=== PATIENT | female | born 1990 | race American Indian/Alaskan Native ===

== ENCOUNTER 2016-03-24 14:13 | Emergency (ER) | payer MEDICAID ==
[2016-03-24 14:35] VITALS: BP 145/83
--- NOTE | 2016-03-24 15:19 | Emergency Department Report ---
Chief Complaint: Abdominal Pain Stated Complaint: ABD PAIN/SPOTTING PINK IN COLOR Time Seen by Provider: 03/24/16 15:13 - HPI History of Present Illness: 25-year-old female comes in for left lower quadrant pain 1 week in an vaginal discharge she also reports of small amount of blood but heavier today that she is noticed but this is not her period. Patient reports her appetite has been abnormal she denies any dysuria no nausea no vomiting. - Exam Vital Signs: Vital Signs 03/24/16 14:31 Temperature 99.1 F Pulse Rate 90 Respiratory 16 Rate Blood Pressure 145/83 O2 Sat by Pulse 100 Oximetry Physical Exam: Alert and oriented 3 cardiovascular S1-S2 regular rate and rhythm respiratory clear to auscultation bilateral abdomen soft nontender nondistended. MSE screening note: Focused history and physical exam performed. Due to findings the following was ordered: Patient's been evaluated by this provider. CBC BMP UA and urine should be evaluated in the main ER ED Disposition for MSE Condition: Stable Instructions: Abdominal Pain (ED)
[2016-03-24 16:16] LABS: Hematocrit 39.8 % (30.3-42.9); Mean Corpuscular HGB Conc 33 % (30-34); Mean Corpuscular Hemoglobin 30 pg (28-32); Mean Corpuscular Volume 92 fl (79-97); Platelet Count 130 K/mm3 (140-440); Red Blood Count 4.34 M/mm3 (3.65-5.03); Red Cell Distribution Width 13.8 % (13.2-15.2); White Blood Count 5.8 K/mm3 (4.5-11.0)
[2016-03-24 16:18] LABS: Bilirubin,Urine NEG (Negative); Blood,Urine SM (Negative); Ketones,Urine TR mg/dL (Negative); Leukocyte Esterase,Urine LG (Negative); Mucus,Urine FEW /HPF; Nitrite,Urine NEG (Negative); Urobilinogen,Urine < 2.0 mg/dL (<2.0)
[2016-03-24 16:29] LABS: BUN/Creatinine Ratio 11.42; Blood Urea Nitrogen 8 mg/dL (7-17); Carbon Dioxide 24 mmol/L (22-30); Chloride 103.5 mmol/L (98-107); Glucose 89 mg/dL (65-100); Potassium 4.6 mmol/L (3.6-5.0); Sodium 140 mmol/L (137-145)
[2016-03-24 16:37] LABS: Anion Gap 17 mmol/L
[2016-03-24] MEDS ORDERED: ROCEPHIN ONE (20:13)
--- NOTE | 2016-03-28 05:50 | ED Elopement Review ---
ED Pt Elopement review - Results review Lab results: Laboratory Tests 03/24/16 03/24/16 03/24/16 15:40 15:59 15:59 WBC 5.8 RBC 4.34 Hgb 13.0 Hct 39.8 MCV 92 MCH 30 MCHC 33 RDW 13.8 Plt Count 130 L Sodium 140 Potassium 4.6 Chloride 103.5 Carbon Dioxide 24 Anion Gap 17 BUN 8 Creatinine 0.7 Estimated GFR > 60 BUN/Creatinine Ratio 11.42 Glucose 89 Calcium 9.0 Urine Color Yellow Urine Turbidity Clear Urine pH 6.0 Ur Specific [place] 1.021 Urine Protein 100 mg/dl Urine Glucose (UA) Neg Urine Ketones Tr Urine Blood Sm Urine Nitrite Neg Urine Bilirubin Neg Urine Urobilinogen < 2.0 Ur Leukocyte Esterase Lg Urine WBC (Auto) 162.0 H Urine RBC (Auto) 12.0 U Epithel Cells (Auto) 8.0 Urine Mucus Few Urine HCG, Qual Negative - Call Back decision Pt Call Back Decision: No action required
== END 2016-03-24 23:37 | disposition left against medical advice (07) ==
LOC: ED 14:13
DX: N89.8 Other specified noninflammatory disorders of vagina (principal); R10.32 Left lower quadrant pain; Z53.21 Procedure and treatment not carried out due to patient leaving prior to being seen by health care provider
CPT/HCPCS: 36415; 80048; 81001; 81025; 85027; J0696

== ENCOUNTER 2016-06-27 17:51 | Emergency (ER) | payer MEDICAID ==
[2016-06-27 22:05] LABS: Eosinophils % (Auto) 2.1 % (0.0-4.3); Hematocrit 37.8 % (30.3-42.9); Hemoglobin 12.4 gm/dl (10.1-14.3); Mean Corpuscular HGB Conc 33 % (30-34); Mean Corpuscular Hemoglobin 30 pg (28-32); Mean Corpuscular Volume 93 fl (79-97); Platelet Count 163 K/mm3 (140-440); Red Blood Count 4.08 M/mm3 (3.65-5.03); Red Cell Distribution Width 13.8 % (13.2-15.2); White Blood Count 7.4 K/mm3 (4.5-11.0)
[2016-06-27 22:11] LABS: Anion Gap 15 mmol/L; BUN/Creatinine Ratio 14.28; Blood Urea Nitrogen 10 mg/dL (7-17); Calcium 8.9 mg/dL (8.4-10.2); Carbon Dioxide 27 mmol/L (22-30); Chloride 100.1 mmol/L (98-107); Glucose 83 mg/dL (65-100); Potassium 3.8 mmol/L (3.6-5.0); Sodium 138 mmol/L (137-145)
--- NOTE | 2016-06-27 23:03 | Emergency Department Report ---
HPI - HPI HPI: 26-year-old female presents today complaining of lower abdominal pain 2 weeks but worsened yesterday. Positive for vaginal discharge. Denies fever, chills, nausea, vomiting, chest pain, shortness of breath, increased urinary frequency or urgency, burning on urination, blood in urine. Her last menstrual period ended yesterday. Patient states that she is worried about . Also complaining of right hand pain post punching a wall one week ago. Describes her pain as a 7 out of 10 with movement and is 0 out of 10 at rest. Denies taking any medication for pain relief. Denies history of injury or surgery to right hand. <AMY AMES - Last Filed: 06/27/16 22:57> <ALFIE ROMERO - Last Filed: 06/28/16 03:02> - General Chief Complaint: Extremity Injury, Upper Time Seen by Provider: 06/27/16 20:37 ED Past Medical Hx - Past Medical History Previous Medical History?: Yes Hx Arthritis: Yes - Surgical History Past Surgical History?: No - Social History Smoking Status: Current Every Day Smoker Substance Use Type: Alcohol <AMY AMES - Last Filed: 06/27/16 22:57> <ALFIE ROMERO - Last Filed: 06/28/16 03:02> - Medications Home Medications: Home Medications Medication Instructions Recorded Confirmed Last Taken Type Dicyclomine [Bentyl] 20 mg PO QID PRN #20 tablet 01/07/13 Unknown Rx Famotidine [Pepcid] 40 mg PO QHS #30 tablet 01/07/13 Unknown Rx Cyclobenzaprine [Flexeril] 10 mg PO TID PRN #14 tablet 01/23/13 Unknown Rx Hydrocodone Bit/Acetaminophen 1 each PO Q4-6H PRN #14 tablet 01/23/13 Unknown Rx [Lortab 5-500 Tablet] Albuterol Sulfate [Ventolin HFA] 2 puff IH Q4H PRN #1 hfa.aer.ad 05/20/13 Unknown Rx Promethazine /Codeine 5 ml PO Q6H PRN #50 ml 05/20/13 Unknown Rx [Phenergan/Codeine 6.25-10 mg/5 ml] predniSONE [Deltasone] 20 mg PO QDAY #4 tab 05/20/13 Unknown Rx Acetaminophen/Codeine 1 tab PO Q6H PRN #20 tab 05/21/14 Unknown Rx [Acetaminophen-Codeine #3 TAB] Ibuprofen [Motrin] 600 mg PO Q8H PRN #50 tablet 05/21/14 Unknown Rx metroNIDAZOLE [Flagyl TAB] 500 mg PO Q12HR #14 tab 06/28/16 Unknown Rx ED Review of Systems ROS: Stated complaint: POSS BROKEN KNUCKLE RT HAND/ABD PAIN Other details as noted in HPI Constitutional: denies: chills, fever, malaise Eyes: denies: eye pain ENT: denies: ear pain, throat pain, congestion Respiratory: denies: cough, shortness of breath, wheezing Cardiovascular: denies: chest pain, palpitations Endocrine: no symptoms reported Gastrointestinal: abdominal pain. denies: nausea, vomiting, diarrhea, constipation Genitourinary: discharge. denies: urgency, dysuria, frequency, hematuria Musculoskeletal: denies: back pain Neurological: denies: headache, weakness, numbness, paresthesias <AMY AMES - Last Filed: 06/27/16 22:57> ROS: Stated complaint: POSS BROKEN KNUCKLE RT HAND/ABD PAIN Other details as noted in HPI <ALFIE ROMERO - Last Filed: 06/28/16 03:02> Physical Exam - Physical Exam Vital Signs: Vital Signs 06/27/16 18:53 Temperature 98.6 F Pulse Rate 66 Respiratory 18 Rate Blood Pressure 111/69 O2 Sat by Pulse 98 Oximetry Physical Exam: GENERAL: The patient is well-developed and well-nourished. Patient is in NAD. HEAD: Normocephalic. Atraumatic. CHEST/LUNGS: Clear to auscultation throughout. HEART/CARDIOVASCULAR: Regular rate and rhythm. No murmurs, rubs or gallops. ABDOMEN: Abdomen is soft, nontender. Bowel sounds normoactive. No guarding or rebound tenderness. Negative for CVA tenderness bilaterally. PELVIC: Normal external genitalia. Normal cervix. Positive for white discharge in the vaginal canal. No blood noted. RIGHT WRIST HAND: Full range of motion, pain with flexion of the fourth digit. No tenderness to palpation of wrist/ hand. Normal sensation. 2 point discrimination intact. Peripheral pulses intact. Capillary refill less than 2 seconds. NEURO: Alert and oriented x 3. Normal gait. Symmetrical strength and sensation. GCS score of 15. <AMY AMES - Last Filed: 06/27/16 22:57> - Physical Exam Vital Signs: Vital Signs 06/27/16 06/28/16 18:53 00:16 Temperature 98.6 F 98 F Pulse Rate 66 50 L Respiratory 18 16 Rate Blood Pressure 111/69 Blood Pressure 84/46 [Right] O2 Sat by Pulse 98 100 Oximetry <ALFIE ROMERO - Last Filed: 06/28/16 03:02> ED Course Vital Signs 06/27/16 18:53 Temperature 98.6 F Pulse Rate 66 Respiratory 18 Rate Blood Pressure 111/69 O2 Sat by Pulse 98 Oximetry <AMY AMES - Last Filed: 06/27/16 22:57> Vital Signs 06/27/16 06/28/16 18:53 00:16 Temperature 98.6 F 98 F Pulse Rate 66 50 L Respiratory 18 16 Rate Blood Pressure 111/69 Blood Pressure 84/46 [Right] O2 Sat by Pulse 98 100 Oximetry <ALFIE ROMERO - Last Filed: 06/28/16 03:02> ED Medical Decision Making - Lab Data Result diagrams: 06/27/16 21:19 06/27/16 21:19 <AMY AMES - Last Filed: 06/27/16 22:57> - Lab Data Result diagrams: 06/27/16 21:19 06/27/16 21:19 - Radiology Data Radiology results: report reviewed Xr right hand no acute osseous abnormality - Medical Decision Making Patient is stable, neurologically intact and in no acute distress. Patient has no abdominal tenderness on palpation and states her pain has resolved on re- examination. patient will be treated with RX for Flagyl for vaginal discharge symptoms and discharged. Patient understands to return to ED for further evaluation if pain returns. Patient also understands to call back to medical records for GC culture results within 48 hours. <ALFIE ROMERO - Last Filed: 06/28/16 03:02> Critical care attestation.: If time is entered above; I have spent that time in minutes in the direct care of this critically ill patient, excluding procedure time. <AMY AMES - Last Filed: 06/27/16 22:57> Critical care attestation.: If time is entered above; I have spent that time in minutes in the direct care of this critically ill patient, excluding procedure time. <ALFIE ROMERO - Last Filed: 06/28/16 03:02> ED Disposition <AMY AMES - Last Filed: 06/27/16 22:57> Is pt being admited?: No Does the pt Need Aspirin: No <ALFIE ROMERO - Last Filed: 06/28/16 03:02> Clinical Impression: Pelvic and perineal pain Disposition: DISCHARGED TO HOME OR SELFCARE Condition: Stable Instructions: Bacterial Vaginosis (ED) Prescriptions: metroNIDAZOLE [Flagyl TAB] 500 mg PO Q12HR #14 tab Referrals: PRIMARY CARE, [Primary Care Provider] - 3-5 Days Forms: Work/School Release Form(ED)
[2016-06-27 23:08] LABS: Bilirubin,Urine NEG (Negative); Blood,Urine NEG (Negative); Ketones,Urine NEG (Negative); Leukocyte Esterase,Urine NEG (Negative); Nitrite,Urine NEG (Negative); Protein,Urine <15 mg/dL mg/dL (Negative); Urobilinogen,Urine < 2.0 mg/dL (<2.0)
--- NOTE | 2016-06-27 23:43 | XRay Report ---
FINAL REPORT EXAM: XR HAND 3 RT HISTORY: Punched a wall TECHNIQUE: 4 views of right hand. PRIORS: None. FINDINGS: Joint spaces maintained. No apparent fracture or dislocation. Soft tissues grossly unremarkable. IMPRESSION: 1. No acute osseous abnormality.
[2016-06-28 00:16] VITALS: BP 84/46
[2016-06-28] MEDS ORDERED: TORADOL IM ONE (01:38)
[2016-06-28] MEDS ORDERED: NORCO 5/325 PO ONE (01:38)
== END 2016-06-28 03:09 | disposition home or self-care (01) ==
LOC: ED 17:51
DX: N89.8 Other specified noninflammatory disorders of vagina (principal); R10.30 Lower abdominal pain, unspecified; M19.90 Unspecified osteoarthritis, unspecified site; F17.200 Nicotine dependence, unspecified, uncomplicated
CPT/HCPCS: 36415; 73130; 80048; 81001; 82150; 83690; 84702; 85025; 87210; 87591; 96372; 99284; J1885

== ENCOUNTER 2018-12-19 20:58 | Emergency (ER) | payer SELFPAY ==
[2018-12-19 21:31] VITALS: BP 122/69
[2018-12-19 22:47] LABS: Bacteria,Urine 4+ /HPF (Negative); Bilirubin,Urine NEG (Negative); Blood,Urine NEG (Negative); Color,Urine Yellow (Yellow); Mucus,Urine 3+ /HPF; Urobilinogen,Urine < 2.0 mg/dL (<2.0)
== END 2018-12-19 23:25 | disposition left against medical advice (07) ==
LOC: ED 20:58
DX: R10.2 Pelvic and perineal pain (principal); Z53.21 Procedure and treatment not carried out due to patient leaving prior to being seen by health care provider
CPT/HCPCS: 81001; 87086

== ENCOUNTER 2019-01-01 20:07 | Emergency (ER) | payer SELFPAY ==
[2019-01-01 20:46] VITALS: BP 107/49
--- NOTE | 2019-01-01 20:48 | Event Note ---
ED Screening Note Date of service: 01/01/19 Time: 20:44 ED Screening Note: This is a 28 y.o. F. that presents to the ER with left shoulder pain x 2-3 weeks. Patient states she delivered 5 months ago and started taking ibuprofen with no improvement of symptoms. Denies recent injury, numbness or tingling, bruising, swelling This initial assessment/diagnostic orders/clinical plan/treatment(s) is/are subject to change based on patients health status, clinical progression and re-assessment by fellow clinical providers in the ED. Further treatment and workup at subsequent clinical providers discretion. Patient/guardian urged not to elope from the ED as their condition may be serious if not clinically assessed and managed. Initial orders include: XR of left shoulder
--- NOTE | 2019-01-01 22:26 | XRay Report ---
LEFT SHOULDER 3 VIEW(S) INDICATION / CLINICAL INFORMATION: MAIN: shoulder pain for over a week and is getting worse. COMPARISON: None available. FINDINGS: BONES / JOINT(S): No acute fracture or subluxation. No significant arthritis. SOFT TISSUES: No significant abnormality. ADDITIONAL FINDINGS: None. Signer Name: Luis Katz MD Signed: 01/01/2019 10:21 PM Workstation Name: [id number]
--- NOTE | 2019-01-01 22:37 | Emergency Department Report ---
ED Upper Extremity Inj HPI - General Chief Complaint: Shoulder Injury Stated Complaint: LEFT SHOULDER PAIN Time Seen by Provider: 01/01/19 20:44 Source: patient Mode of arrival: Ambulatory Limitations: No Limitations - History of Present Illness Initial Comments: Jodi is a 24 yo female who presents with left posterior shoulder pain for the past several weeks. no injury. Does carry her 5 month old infant. Ibuprofen no relief. Complaint: Injury to:: left, shoulder -: Gradual, week(s) (2-3) Other Extremity Injury: Shoulder: Left Other Injuries: none Place: home Severity scale (0 -10): 7 Improves With: rest Worsens With: movement of extremity Context: other (no known injury ) Associated Symptoms: denies other symptoms - Related Data Previous Rx's Medication Instructions Recorded Last Taken Type Dicyclomine [Bentyl] 20 mg PO QID PRN #20 tablet 01/07/13 Unknown Rx Famotidine [Pepcid] 40 mg PO QHS #30 tablet 01/07/13 Unknown Rx Cyclobenzaprine [Flexeril] 10 mg PO TID PRN #14 tablet 01/23/13 Unknown Rx Hydrocodone Bit/Acetaminophen 1 each PO Q4-6H PRN #14 tablet 01/23/13 Unknown Rx [Lortab 5-500 Tablet] Albuterol Sulfate [Ventolin HFA] 2 puff IH Q4H PRN #1 hfa.aer.ad 05/20/13 Unknown Rx Promethazine /Codeine 5 ml PO Q6H PRN #50 ml 05/20/13 Unknown Rx [Phenergan/Codeine 6.25-10 mg/5 ml] predniSONE [Deltasone] 20 mg PO QDAY #4 tab 05/20/13 Unknown Rx Acetaminophen/Codeine 1 tab PO Q6H PRN #20 tab 05/21/14 Unknown Rx [Acetaminophen-Codeine #3 TAB] Ibuprofen [Motrin] 600 mg PO Q8H PRN #50 tablet 05/21/14 Unknown Rx metroNIDAZOLE [Flagyl TAB] 500 mg PO Q12HR #14 tab 06/28/16 Unknown Rx ALBUTEROL Inhaler (OR & NICU) 2 puff IH QID PRN #1 inhalation 10/22/17 Unknown Rx [ProAir HFA Inhaler] Azithromycin 250 mg PO DAILY #6 tablet 10/22/17 Unknown Rx Benzonatate [Tessalon Perle] 100 mg PO TID PRN #30 capsule 10/22/17 Unknown Rx Fluconazole [Diflucan TAB] 150 mg PO ONCE #1 tablet 10/22/17 Unknown Rx Ibuprofen 800 mg PO TID PRN #30 tablet 10/22/17 Unknown Rx predniSONE [Deltasone] 40 mg PO QDAY #10 tab 10/22/17 Unknown Rx Ibuprofen [Motrin 800 MG tab] 800 mg PO TID 5 Days #15 tablet 01/01/19 Unknown Rx Allergies Allergy/AdvReac Type Severity Reaction Status Date / Time No Known Allergies Allergy Verified 01/23/13 15:31 ED Review of Systems ROS: Stated complaint: LEFT SHOULDER PAIN Other details as noted in HPI Constitutional: denies: fever, malaise Musculoskeletal: arthralgia. denies: joint swelling Skin: denies: rash, lesions Neurological: denies: numbness, paresthesias ED Past Medical Hx - Past Medical History Previous Medical History?: Yes Hx Arthritis: Yes - Social History Smoking Status: Never Smoker Substance Use Type: None - Medications Home Medications: Home Medications Medication Instructions Recorded Confirmed Last Taken Type Dicyclomine [Bentyl] 20 mg PO QID PRN #20 tablet 01/07/13 Unknown Rx Famotidine [Pepcid] 40 mg PO QHS #30 tablet 01/07/13 Unknown Rx Cyclobenzaprine [Flexeril] 10 mg PO TID PRN #14 tablet 01/23/13 Unknown Rx Hydrocodone Bit/Acetaminophen 1 each PO Q4-6H PRN #14 tablet 01/23/13 Unknown Rx [Lortab 5-500 Tablet] Albuterol Sulfate [Ventolin HFA] 2 puff IH Q4H PRN #1 hfa.aer.ad 05/20/13 Unknown Rx Promethazine /Codeine 5 ml PO Q6H PRN #50 ml 05/20/13 Unknown Rx [Phenergan/Codeine 6.25-10 mg/5 ml] predniSONE [Deltasone] 20 mg PO QDAY #4 tab 05/20/13 Unknown Rx Acetaminophen/Codeine 1 tab PO Q6H PRN #20 tab 05/21/14 Unknown Rx [Acetaminophen-Codeine #3 TAB] Ibuprofen [Motrin] 600 mg PO Q8H PRN #50 tablet 05/21/14 Unknown Rx metroNIDAZOLE [Flagyl TAB] 500 mg PO Q12HR #14 tab 06/28/16 Unknown Rx ALBUTEROL Inhaler (OR & NICU) 2 puff IH QID PRN #1 inhalation 10/22/17 Unknown Rx [ProAir HFA Inhaler] Azithromycin 250 mg PO DAILY #6 tablet 10/22/17 Unknown Rx Benzonatate [Tessalon Perle] 100 mg PO TID PRN #30 capsule 10/22/17 Unknown Rx Fluconazole [Diflucan TAB] 150 mg PO ONCE #1 tablet 10/22/17 Unknown Rx Ibuprofen 800 mg PO TID PRN #30 tablet 10/22/17 Unknown Rx predniSONE [Deltasone] 40 mg PO QDAY #10 tab 10/22/17 Unknown Rx Ibuprofen [Motrin 800 MG tab] 800 mg PO TID 5 Days #15 tablet 01/01/19 Unknown Rx ED Physical Exam - General Limitations: No Limitations General appearance: alert, in no apparent distress - Head Head exam: Present: atraumatic - Eye Eye exam: Absent: scleral icterus, conjunctival injection - ENT ENT exam: Present: mucous membranes moist - Neck Neck exam: Present: normal inspection, full ROM. Absent: tenderness, meningismus - Expanded Upper Extremity Exam Left Shoulder Exam: Present: normal inspection, full ROM. Absent: tenderness, swelling, abrasion, laceration, deformity, crepidus Upper Arm exam: Present: normal inspection, full ROM. Absent: tenderness, swelling, abrasion, laceration, ecchymosis ED Course Vital Signs 01/01/19 20:44 Temperature 98 F Pulse Rate 81 Respiratory 18 Rate Blood Pressure 107/49 O2 Sat by Pulse 100 Oximetry ED Medical Decision Making - Medical Decision Making left shoulder sprain: recommended rest ice scheduled consistent use of Ibuprofen, referred to orthopedic surgeon Critical care attestation.: If time is entered above; I have spent that time in minutes in the direct care of this critically ill patient, excluding procedure time. ED Disposition Clinical Impression: Sprain of left shoulder Disposition: DC-01 TO HOME OR SELFCARE Is pt being admited?: No Does the pt Need Aspirin: No Condition: Stable Instructions: Shoulder Sprain (ED) Prescriptions: Ibuprofen [Motrin 800 MG tab] 800 mg PO TID 5 Days #15 tablet Referrals: GUCCI MIGUEL MD [Staff Physician] - 3-5 Days
== END 2019-01-01 22:44 | disposition home or self-care (01) ==
LOC: ED 20:07
DX: S43.402A Unspecified sprain of left shoulder joint, initial encounter (principal); M19.90 Unspecified osteoarthritis, unspecified site; Z79.899 Other long term (current) drug therapy; X58.XXXA Exposure to other specified factors, initial encounter; Y93.89 Activity, other specified; Y92.89 Other specified places as the place of occurrence of the external cause; Y99.8 Other external cause status

== ENCOUNTER 2019-03-16 14:15 | Emergency (ER) | payer SELFPAY ==
[2019-03-16 15:14] VITALS: BP 105/64
--- NOTE | 2019-03-16 15:14 | Event Note ---
ED Screening Note Date of service: 03/16/19 Time: 15:12 ED Screening Note: 28 y o female presents with pelvic pain , stating worse with movt. walking and picking up her 8 month old LMP: no abnormal bleed This initial assessment/diagnostic orders/clinical plan/treatment(s) is/are subject to change based on patients health status, clinical progression and re- assessment by fellow clinical providers in the ED. Further treatment and workup at subsequent clinical providers discretion. Patient/guardian urged not to elope from the ED as their condition may be serious if not clinically assessed and managed. Initial orders include: ua, upt
[2019-03-16 16:17] LABS: Bacteria,Urine 1+ /HPF (Negative); Bilirubin,Urine NEG (Negative); Blood,Urine NEG (Negative); Color,Urine Yellow (Yellow); Mucus,Urine FEW /HPF; Protein,Urine <15 mg/dL mg/dL (Negative); Urobilinogen,Urine < 2.0 mg/dL (<2.0)
[2019-03-16 16:21] LABS: HCG Qualitative,Urine Negative (Negative)
[2019-03-16] MEDS ORDERED: cephALEXin 500 MG CAP PO ONE (21:30)
[2019-03-16] MEDS ORDERED: ONDANSETRON 4 MG ODT TAB PO ONE (21:30)
[2019-03-16] MEDS ORDERED: IBUPROFEN 600 MG TAB PO ONE (21:30)
[2019-03-16 21:52] LABS: Basophils % (Auto) 0.7 % (0.0-1.8); Eosinophils # (Auto) 0.1 K/mm3 (0.0-0.4); Eosinophils % (Auto) 1.1 % (0.0-4.3); Hemoglobin 13.1 gm/dl (10.1-14.3); Lymphocytes # (Auto) 2.4 K/mm3 (1.2-5.4); Lymphocytes % (Auto) 34.4 % (13.4-35.0); Mean Corpuscular HGB Conc 34 % (30-34); Mean Corpuscular Volume 92 fl (79-97); Monocytes # (Auto) 0.5 K/mm3 (0.0-0.8); Monocytes % (Auto) 7.7 % (0.0-7.3); Platelet Count 151 K/mm3 (140-440); Red Blood Count 4.22 M/mm3 (3.65-5.03); Red Cell Distribution Width 13.5 % (13.2-15.2)
[2019-03-16 22:16] LABS: Alanine Aminotransferase 14 units/L (7-56); Albumin 4.7 g/dL (3.9-5); BUN/Creatinine Ratio 13; Blood Urea Nitrogen 9 mg/dL (7-17); Calcium 9.2 mg/dL (8.4-10.2); Hemolysis Index 29
[2019-03-16] MEDS ORDERED: AZITHROMYCIN 250 MG TAB PO ONE (23:47)
[2019-03-16] MEDS ORDERED: LIDOCAINE-MPF (1%) 10 MG/1 ML VIAL 5 ML INFILTRATI ONE (23:47)
--- NOTE | 2019-03-17 00:52 | Emergency Department Report ---
ED Abdominal Pain HPI - General Chief Complaint: Abdominal Pain Stated Complaint: ABD PAIN/DISCHARGE Source: patient Mode of arrival: Ambulatory Limitations: No Limitations - History of Present Illness Initial Comments: Patient is a A0 28-year-old white female with no past medical history who presents to the ED with complaint of acute onset persistent suprapubic pressure, vaginal discharge, urinary frequency and urgency for the last 1 week. Patient described the vaginal discharge is white take discharge with malodorous fishy smell. Patient denies vaginal bleeding, nausea, vomiting, low back pain, dysuria, diarrhea, fever, chills, dyspareunia or headache. Patient states that her last sexual intercourse was over 3 months ago that it was unprotected and she suspects that she may have been exposed to some unknown STD as she usually does not experience such vaginal discharge. Patient states that she would like to be evaluated for yesterday as well as other ailments. MD Complaint: abdominal pain (suprapubic), other (vaginal discharge with malodorous smell) -: Sudden, week(s) (1) Location: suprapubic Radiation: none Migration to: no migration Severity: moderate Severity scale (0 -10): 6 Quality: aching, dull Consistency: intermittent Improves With: nothing Worsens With: movement Context: sick contacts (exposed to a suspicious individual during sexual interc ourse) Associated Symptoms: denies other symptoms. denies: nausea, vomiting, diarrhea, fever, chills, constipation, dysuria, hematemesis, hematochezia, hematuria, anorexia - Related Data LMP Date: 03/05/19 Previous Rx's Medication Instructions Recorded Last Taken Type Dicyclomine [Bentyl] 20 mg PO QID PRN #20 tablet 01/07/13 Unknown Rx Famotidine [Pepcid] 40 mg PO QHS #30 tablet 01/07/13 Unknown Rx Cyclobenzaprine [Flexeril] 10 mg PO TID PRN #14 tablet 01/23/13 Unknown Rx Hydrocodone Bit/Acetaminophen 1 each PO Q4-6H PRN #14 tablet 01/23/13 Unknown Rx [Lortab 5-500 Tablet] Albuterol Sulfate [Ventolin HFA] 2 puff IH Q4H PRN #1 hfa.aer.ad 05/20/13 Unknown Rx Promethazine /Codeine 5 ml PO Q6H PRN #50 ml 05/20/13 Unknown Rx [Phenergan/Codeine 6.25-10 mg/5 ml] predniSONE [Deltasone] 20 mg PO QDAY #4 tab 05/20/13 Unknown Rx Acetaminophen/Codeine 1 tab PO Q6H PRN #20 tab 05/21/14 Unknown Rx [Acetaminophen-Codeine #3 TAB] Ibuprofen [Motrin] 600 mg PO Q8H PRN #50 tablet 05/21/14 Unknown Rx metroNIDAZOLE [Flagyl TAB] 500 mg PO Q12HR #14 tab 06/28/16 Unknown Rx ALBUTEROL Inhaler (OR & NICU) 2 puff IH QID PRN #1 inhalation 10/22/17 Unknown Rx [ProAir HFA Inhaler] Azithromycin 250 mg PO DAILY #6 tablet 10/22/17 Unknown Rx Benzonatate [Tessalon Perle] 100 mg PO TID PRN #30 capsule 10/22/17 Unknown Rx Fluconazole [Diflucan TAB] 150 mg PO ONCE #1 tablet 10/22/17 Unknown Rx Ibuprofen 800 mg PO TID PRN #30 tablet 10/22/17 Unknown Rx predniSONE [Deltasone] 40 mg PO QDAY #10 tab 10/22/17 Unknown Rx Ibuprofen [Motrin 800 MG tab] 800 mg PO TID 5 Days #15 tablet 01/01/19 Unknown Rx Fluconazole [Diflucan TAB] 150 mg PO ONCE #1 tablet 03/17/19 Unknown Rx Naproxen 500 mg PO Q12H PRN #24 tablet 03/17/19 Unknown Rx Ondansetron [Zofran Odt] 4 mg PO Q6HR PRN #15 tab.rapdis 03/17/19 Unknown Rx cephALEXin [Keflex] 500 mg PO Q8HR #30 cap 03/17/19 Unknown Rx metroNIDAZOLE [Flagyl] 500 mg PO Q12HR #20 tab 03/17/19 Unknown Rx Allergies Allergy/AdvReac Type Severity Reaction Status Date / Time No Known Allergies Allergy Verified 01/23/13 15:31 ED Review of Systems ROS: Stated complaint: ABD PAIN/DISCHARGE Other details as noted in HPI Constitutional: denies: chills, fever Eyes: denies: eye pain, eye discharge, vision change ENT: denies: ear pain, throat pain Respiratory: denies: cough, shortness of breath, wheezing Cardiovascular: denies: chest pain, palpitations Endocrine: no symptoms reported Gastrointestinal: abdominal pain (suprapubic). denies: nausea, vomiting, diarrhea Genitourinary: urgency, frequency, discharge. denies: dysuria Musculoskeletal: denies: back pain, joint swelling, arthralgia Skin: denies: rash, lesions Neurological: denies: headache, weakness, paresthesias Psychiatric: denies: anxiety, depression Hematological/Lymphatic: denies: easy bleeding, easy bruising ED Past Medical Hx - Past Medical History Previous Medical History?: Yes Hx Arthritis: Yes - Surgical History Past Surgical History?: Yes Additional Surgical History: C section - Social History Smoking Status: Never Smoker Substance Use Type: None - Medications Home Medications: Home Medications Medication Instructions Recorded Confirmed Last Taken Type Dicyclomine [Bentyl] 20 mg PO QID PRN #20 tablet 01/07/13 Unknown Rx Famotidine [Pepcid] 40 mg PO QHS #30 tablet 01/07/13 Unknown Rx Cyclobenzaprine [Flexeril] 10 mg PO TID PRN #14 tablet 01/23/13 Unknown Rx Hydrocodone Bit/Acetaminophen 1 each PO Q4-6H PRN #14 tablet 01/23/13 Unknown Rx [Lortab 5-500 Tablet] Albuterol Sulfate [Ventolin HFA] 2 puff IH Q4H PRN #1 hfa.aer.ad 05/20/13 Unknown Rx Promethazine /Codeine 5 ml PO Q6H PRN #50 ml 05/20/13 Unknown Rx [Phenergan/Codeine 6.25-10 mg/5 ml] predniSONE [Deltasone] 20 mg PO QDAY #4 tab 05/20/13 Unknown Rx Acetaminophen/Codeine 1 tab PO Q6H PRN #20 tab 05/21/14 Unknown Rx [Acetaminophen-Codeine #3 TAB] Ibuprofen [Motrin] 600 mg PO Q8H PRN #50 tablet 05/21/14 Unknown Rx metroNIDAZOLE [Flagyl TAB] 500 mg PO Q12HR #14 tab 06/28/16 Unknown Rx ALBUTEROL Inhaler (OR & NICU) 2 puff IH QID PRN #1 inhalation 10/22/17 Unknown Rx [ProAir HFA Inhaler] Azithromycin 250 mg PO DAILY #6 tablet 10/22/17 Unknown Rx Benzonatate [Tessalon Perle] 100 mg PO TID PRN #30 capsule 10/22/17 Unknown Rx Fluconazole [Diflucan TAB] 150 mg PO ONCE #1 tablet 10/22/17 Unknown Rx Ibuprofen 800 mg PO TID PRN #30 tablet 10/22/17 Unknown Rx predniSONE [Deltasone] 40 mg PO QDAY #10 tab 10/22/17 Unknown Rx Ibuprofen [Motrin 800 MG tab] 800 mg PO TID 5 Days #15 tablet 01/01/19 Unknown Rx Fluconazole [Diflucan TAB] 150 mg PO ONCE #1 tablet 03/17/19 Unknown Rx Naproxen 500 mg PO Q12H PRN #24 tablet 03/17/19 Unknown Rx Ondansetron [Zofran Odt] 4 mg PO Q6HR PRN #15 tab.rapdis 03/17/19 Unknown Rx cephALEXin [Keflex] 500 mg PO Q8HR #30 cap 03/17/19 Unknown Rx metroNIDAZOLE [Flagyl] 500 mg PO Q12HR #20 tab 03/17/19 Unknown Rx ED Physical Exam - General Limitations: No Limitations General appearance: alert, in no apparent distress - Head Head exam: Present: atraumatic, normocephalic, normal inspection - Eye Eye exam: Present: normal appearance, PERRL, EOMI Pupils: Present: normal accommodation - ENT ENT exam: Present: normal exam, normal orophraynx, mucous membranes moist, TM's normal bilaterally, normal external ear exam - Neck Neck exam: Present: normal inspection, full ROM - Respiratory Respiratory exam: Present: normal lung sounds bilaterally. Absent: respiratory distress, wheezes, rales, rhonchi, stridor, chest wall tenderness, accessory muscle use, prolonged expiratory - Cardiovascular Cardiovascular Exam: Present: regular rate, normal rhythm, normal heart sounds. Absent: systolic murmur, diastolic murmur, rubs, gallop - GI/Abdominal GI/Abdominal exam: Present: soft, normal bowel sounds. Absent: tenderness, guarding, rebound, hyperactive bowel sounds, hypoactive bowel sounds, organomegaly - External exam: Present: normal external exam Speculum exam: Present: vaginal discharge, cervical discharge. Absent: vaginal bleeding Bi-manual exam: Present: normal bi-manual exam, other (Female RN Presents during pelvic exam) - Extremities Exam Extremities exam: Present: normal inspection, full ROM, normal capillary refill - Back Exam Back exam: Present: normal inspection, full ROM. Absent: muscle spasm, pa raspinal tenderness, vertebral tenderness - Neurological Exam Neurological exam: Present: alert, oriented X3, CN II-XII intact, normal gait, reflexes normal - Psychiatric Psychiatric exam: Present: normal affect, normal mood - Skin Skin exam: Present: warm, dry, intact, normal color. Absent: rash ED Course Vital Signs 03/16/19 15:11 Temperature 97.7 F Pulse Rate 61 Respiratory 16 Rate Blood Pressure 105/64 O2 Sat by Pulse 97 Oximetry ED Medical Decision Making - Lab Data Result diagrams: 03/16/19 21:39 03/16/19 21:39 - Medical Decision Making This is a 28-year-old female who presented to the ED with suprapubic pressure, vaginal discharge and urinary frequency and urgency for 1 week. In the ED, patient is alert and oriented 3 and is not in distress. Lab test results were reviewed and are unremarkable except for urinalysis that showed significant urinary tract infection. Patient was empirically treated in the ED with antibiotics and pain medication and discharged home on antibiotics for UTI and bacterial vaginosis. Patient was advised to follow-up with her primary care physician in 7-10 days for reevaluation or return to the ED immediately if symptoms get worse. - Differential Diagnosis UTI; Bacterial Vaginosis; Trichomonas; STD Critical care attestation.: If time is entered above; I have spent that time in minutes in the direct care of this critically ill patient, excluding procedure time. ED Disposition Clinical Impression: Acute urinary tract infection, Bacterial vaginosis, Abdominal pain, suprapubic, Vaginal discharge Disposition: TO HOME OR SELFCARE Is pt being admited?: No Does the pt Need Aspirin: No Condition: Stable Instructions: Bacterial Vaginosis (ED), Urinary Tract Infection in Women (ED), Abdominal Pain (ED) Additional Instructions: Take medication with food, drink plenty of fluids and follow-up with your primary care physician in 7-10 days for reevaluation. Return to the ED immediately if symptoms get worse. Prescriptions: Fluconazole [Diflucan TAB] 150 mg PO ONCE #1 tablet metroNIDAZOLE [Flagyl] 500 mg PO Q12HR #20 tab cephALEXin [Keflex] 500 mg PO Q8HR #30 cap Naproxen 500 mg PO Q12H PRN #24 tablet PRN Reason: Pain , Severe (7-10) Ondansetron [Zofran Odt] 4 mg PO Q6HR PRN #15 tab.rapdis PRN Reason: Nausea Referrals: MAURILIO REID MD [Staff Physician] - 3-5 Days Forms: STI Treatment and Prevention Time of Disposition: 01:01 Print Language: SERBIAN
== END 2019-03-17 01:08 | disposition home or self-care (01) ==
LOC: ED 14:15
DX: N39.0 Urinary tract infection, site not specified (principal); N76.0 Acute vaginitis; B96.89 Other specified bacterial agents as the cause of diseases classified elsewhere; M19.90 Unspecified osteoarthritis, unspecified site; Z98.890 Other specified postprocedural states; Z79.899 Other long term (current) drug therapy
CPT/HCPCS: 36415; 80053; 81001; 81025; 83690; 85025; 87086; 87210; 87591; 96372; 99284; J0696; Q0162

== ENCOUNTER 2021-01-31 18:21 | Emergency (ER) | payer SELFPAY ==
--- NOTE | 2021-01-31 18:43 | Emergency Department Report ---
HPI - General Chief Complaint: Vaginal Bleeding Time Seen by Provider: 01/31/21 18:32 - HPI HPI: Room 36 The patient is a 30-year-old female present with chief complaint of pelvic pain and vaginal bleeding. The patient states she is approximately 2 months with her LMP occurring early in December. Patient states she has not yet had care for this . The patient states for the past 3 days she has had intermittent pain in the left pelvis today she developed vaginal spotting. Patient denies recent intercourse before the vaginal spotting. Patient denies history of fever. ED Past Medical Hx - Past Medical History Hx Arthritis: Yes - Surgical History Additional Surgical History: C section - Family History Family history: no significant - Social History Smoking Status: Current Some Day Smoker (Black and milds) Substance Use Type: None (Denies illicit drug use) - Medications Home Medications: Home Medications Medication Instructions Recorded Confirmed Last Taken Type Dicyclomine [Bentyl] 20 mg PO QID PRN #20 tablet 01/07/13 Unknown Rx Famotidine [Pepcid] 40 mg PO QHS #30 tablet 01/07/13 Unknown Rx Cyclobenzaprine [Flexeril] 10 mg PO TID PRN #14 tablet 01/23/13 Unknown Rx Hydrocodone Bit/Acetaminophen 1 each PO Q4-6H PRN #14 tablet 01/23/13 Unknown Rx [Lortab 5-500 Tablet] Albuterol Sulfate [Ventolin HFA] 2 puff IH Q4H PRN #1 hfa.aer.ad 05/20/13 Unknown Rx Promethazine /Codeine 5 ml PO Q6H PRN #50 ml 05/20/13 Unknown Rx [Phenergan/Codeine 6.25-10 mg/5 ml] predniSONE [Deltasone] 20 mg PO QDAY #4 tab 05/20/13 Unknown Rx Acetaminophen/Codeine 1 tab PO Q6H PRN #20 tab 05/21/14 Unknown Rx [Acetaminophen-Codeine #3 TAB] Ibuprofen [Motrin] 600 mg PO Q8H PRN #50 tablet 05/21/14 Unknown Rx metroNIDAZOLE [Flagyl TAB] 500 mg PO Q12HR #14 tab 06/28/16 Unknown Rx Albuterol Mdi (or & Nicu Only) 2 puff IH QID PRN #1 inhalation 10/22/17 Unknown Rx [ProAir HFA Inhaler] Azithromycin 250 mg PO DAILY #6 tablet 10/22/17 Unknown Rx Benzonatate [Tessalon Perle] 100 mg PO TID PRN #30 capsule 10/22/17 Unknown Rx Fluconazole (Nf) [Diflucan TAB] 150 mg PO ONCE #1 tablet 10/22/17 Unknown Rx Ibuprofen 800 mg PO TID PRN #30 tablet 10/22/17 Unknown Rx predniSONE [Deltasone] 40 mg PO QDAY #10 tab 10/22/17 Unknown Rx Ibuprofen [Motrin 800 MG tab] 800 mg PO TID 5 Days #15 tablet 01/01/19 Unknown Rx Fluconazole (Nf) [Diflucan TAB] 150 mg PO ONCE #1 tablet 03/17/19 Unknown Rx Naproxen 500 mg PO Q12H PRN #24 tablet 03/17/19 Unknown Rx Ondansetron [Zofran Odt] 4 mg PO Q6HR PRN #15 tab.rapdis 03/17/19 Unknown Rx cephALEXin [Keflex] 500 mg PO Q8HR #30 cap 03/17/19 Unknown Rx metroNIDAZOLE [Flagyl] 500 mg PO Q12HR #20 tab 03/17/19 Unknown Rx ED Review of Systems ROS: Stated complaint: ABD PAIN/ PREG Other details as noted in HPI Constitutional: denies: fever Eyes: denies: eye pain ENT: denies: throat pain Respiratory: no symptoms reported Cardiovascular: denies: chest pain Endocrine: no symptoms reported Gastrointestinal: abdominal pain Genitourinary: abnormal menses Musculoskeletal: denies: back pain Neurological: denies: headache Physical Exam - Physical Exam Vital Signs: Vital Signs 01/31/21 18:23 Temperature 98.5 F Pulse Rate 116 H Respiratory 15 Rate Blood Pressure 142/83 O2 Sat by Pulse 100 Oximetry Physical Exam: GENERAL: The patient is well-developed well-nourished female lying on stretcher not appearing to be in acute distress. [] HEENT: Normocephalic. Atraumatic. Extraocular motions are intact. Patient has moist mucous membranes. NECK: Supple. Trachea midline CHEST/LUNGS: Clear to auscultation. There is no respiratory distress noted. HEART/CARDIOVASCULAR: Regular. There is no tachycardia. There is no gallop rub or murmur. ABDOMEN: Abdomen is soft, with trace discomfort to palpation in the left lower quadrant. Patient has normal bowel sounds. There is no abdominal distention. SKIN: There is no rash. There is no edema. There is no diaphoresis. NEURO: The patient is awake, alert, and oriented. The patient is cooperative. The patient has no focal neurologic deficits. The patient has normal speech. GCS 15 MUSCULOSKELETAL: There is no evidence of acute injury. ED Course Vital Signs 01/31/21 18:23 Temperature 98.5 F Pulse Rate 116 H Respiratory 15 Rate Blood Pressure 142/83 O2 Sat by Pulse 100 Oximetry ED Medical Decision Making - Lab Data Result diagrams: 01/31/21 18:48 01/31/21 18:48 Laboratory Tests 01/31/21 01/31/21 01/31/21 18:48 18:48 18:48 WBC 7.1 RBC 4.33 Hgb 12.9 Hct 40.1 MCV 93 MCH 30 MCHC 32 RDW 14.8 Plt Count 158 Lymph % (Auto) 32.3 [place] % (Auto) 7.4 H Eos % (Auto) 1.1 Baso % (Auto) 0.7 Lymph # (Auto) 2.3 [place] # (Auto) 0.5 Eos # (Auto) 0.1 Baso # (Auto) 0.1 Seg Neutrophils % 58.5 Seg Neutrophils # 4.1 Sodium 140 Potassium 4.3 Chloride 104.3 Carbon Dioxide 24 Anion Gap 16 BUN 9 Creatinine 0.7 Estimated GFR > 60 BUN/Creatinine Ratio 13 Glucose 91 Calcium 9.6 Total Bilirubin 0.50 AST 16 ALT 12 Alkaline Phosphatase 71 Total Protein 7.5 Albumin 4.9 Albumin/Globulin Ratio 1.9 HCG, Quant 5698 H Urine Color Urine Turbidity Urine pH Ur Specific [place] Urine Protein Urine Glucose (UA) Urine Ketones Urine Blood Urine Nitrite Urine Bilirubin Urine Urobilinogen Ur Leukocyte Esterase Urine WBC (Auto) Urine RBC (Auto) U Epithel Cells (Auto) Urine Mucus Blood Type 01/31/21 01/31/21 18:48 19:26 WBC RBC Hgb Hct MCV MCH MCHC RDW Plt Count Lymph % (Auto) [place] % (Auto) Eos % (Auto) Baso % (Auto) Lymph # (Auto) [place] # (Auto) Eos # (Auto) Baso # (Auto) Seg Neutrophils % Seg Neutrophils # Sodium Potassium Chloride Carbon Dioxide Anion Gap BUN Creatinine Estimated GFR BUN/Creatinine Ratio Glucose Calcium Total Bilirubin AST ALT Alkaline Phosphatase Total Protein Albumin Albumin/Globulin Ratio HCG, Quant Urine Color Yellow Urine Turbidity Clear Urine pH 6.0 Ur Specific [place] 1.018 Urine Protein <15 mg/dl Urine Glucose (UA) Neg Urine Ketones Neg Urine Blood Neg Urine Nitrite Neg Urine Bilirubin Neg Urine Urobilinogen < 2.0 Ur Leukocyte Esterase Neg Urine WBC (Auto) < 1.0 Urine RBC (Auto) 1.0 U Epithel Cells (Auto) 1.0 Urine Mucus Few Blood Type O POSITIVE - Radiology Data Radiology results: report reviewed (Pelvic ultrasound), image reviewed (Pelvic ultrasound) [facility], [place] [address] [place] [address] Ultrasound Report Signed Patient: NAV GRANT MR#: [id number] : 1990 Acct:[id number] Age/Sex: 30 / F ADM Date: 01/31/21 Loc: ED Attending Dr: Ordering Physician: EH MARTI MD Date of Service: 01/31/21 Procedure(s): US OB transvaginal Accession Number(s): [id number] cc: EH MARTI MD ULTRASOUND OBSTETRIC INDICATION: 6 weeks with pelvic pain and vaginal bleeding. TECHNIQUE: Transvaginal. COMPARISON: None available. FINDINGS: GESTATIONAL SAC: Well-defined oval shape and intrauterine in location. Mean sac diameter measures 0.77, consistent with an estimated age of 5 weeks, 4 days. YOLK SAC: No significant abnormality. EMBRYO/FETUS: None seen. ADNEXA: A dominant follicle in the left ovary measures up to 1.9 cm. A right ovarian follicle containing possible septations measures up to 1.4 cm. No other significant abnormality. FREE FLUID: None. ADDITIONAL FINDINGS: None. IMPRESS ION: 1. Intrauterine gestational sac as above with an estimated age of 5 weeks, 4 days without visualization of a pole. Close clinical and imaging follow- up is recommended. Signer Name: Leonel Brower MD Signed: 01/31/2021 8:45 PM Workstation Name: [id number] Transcribed By: RAMSES Dictated By: Leonel Brower MD Electronically Authenticated By: Leonel Brower MD Signed Date/Time: 01/31/212044 DD/ 40 TD/TT: Print Cancel - Differential Diagnosis Threatened , ectopic , UTI Critical care attestation.: If time is entered above; I have spent that time in minutes in the direct care of this critically ill patient, excluding procedure time. ED Disposition Clinical Impression: Threatened Disposition: 01 HOME / SELF CARE / HOMELESS Is pt being admited?: No Does the pt Need Aspirin: No Condition: Stable Instructions: Threatened Miscarriage, Vaginal Bleeding During , First Trimester Additional Instructions: Return to the emergency department should you develop worsening symptoms, inability to tolerate food or liquids, high fever or any other concerns Referrals: AIDAN BELLA MD [Staff Physician] - 3-5 Days (Dr. Bella is an [employer]. Please follow-up with her for further evaluation and to be established as a patient) Time of Disposition: 21:27
[2021-01-31 19:03] LABS: Basophils # (Auto) 0.1 K/mm3 (0.0-0.1); Basophils % (Auto) 0.7 % (0.0-1.8); Eosinophils # (Auto) 0.1 K/mm3 (0.0-0.4); Eosinophils % (Auto) 1.1 % (0.0-4.3); Hematocrit 40.1 % (30.3-42.9); Hemoglobin 12.9 gm/dl (10.1-14.3); Lymphocytes # (Auto) 2.3 K/mm3 (1.2-5.4); Lymphocytes % (Auto) 32.3 % (13.4-35.0); Mean Corpuscular HGB Conc 32 % (30-34); Mean Corpuscular Volume 93 fl (79-97); Monocytes # (Auto) 0.5 K/mm3 (0.0-0.8); Monocytes % (Auto) 7.4 % (0.0-7.3); Platelet Count 158 K/mm3 (140-440); Red Blood Count 4.33 M/mm3 (3.65-5.03); Red Cell Distribution Width 14.8 % (13.2-15.2)
[2021-01-31 19:25] LABS: Alanine Aminotransferase 12 units/L (7-56); Albumin 4.9 g/dL (3.9-5); Blood Urea Nitrogen 9 mg/dL (7-17); Calcium 9.6 mg/dL (8.4-10.2); Hemolysis Index 13
[2021-01-31 19:28] LABS: BUN/Creatinine Ratio 13
[2021-01-31 20:13] LABS: Bilirubin,Urine NEG (Negative); Blood,Urine NEG (Negative); Color,Urine Yellow (Yellow); Mucus,Urine FEW /HPF; Protein,Urine <15 mg/dL mg/dL (Negative); Urobilinogen,Urine < 2.0 mg/dL (<2.0); WBC,Urine < 1.0 /HPF (0.0-6.0)
--- NOTE | 2021-01-31 20:50 | Ultrasound Report ---
ULTRASOUND OBSTETRIC INDICATION: 6 weeks with pelvic pain and vaginal bleeding. TECHNIQUE: Transvaginal. COMPARISON: None available. FINDINGS: GESTATIONAL SAC: Well-defined oval shape and intrauterine in location. Mean sac diameter measures 0.7 7, consistent with an estimated age of 5 weeks, 4 days. YOLK SAC: No significant abnormality. EMBRYO/FETUS: None seen. ADNEXA: A dominant follicle in the left ovary measures up to 1.9 cm. A right ovarian follicle contain ing possible septations measures up to 1.4 cm. No other significant abnormality. FREE FLUID: None. ADDITIONAL FINDINGS: None. IMPRESSION: 1. Intrauterine gestational sac as above with an estimated age of 5 weeks, 4 days without visualizati on of a pole. Close clinical and imaging follow-up is recommended. Signer Name: Leonel Brower MD Signed: 01/31/2021 8:45 PM Workstation Name: [id number]
[2021-01-31 21:55] VITALS: BP 112/70
== END 2021-01-31 22:30 | disposition home or self-care (01) ==
LOC: ED 18:21
DX: O20.0 Threatened abortion (principal); O99.331 Smoking (tobacco) complicating pregnancy, first trimester; Z3A.01 Less than 8 weeks gestation of pregnancy
CPT/HCPCS: 36415; 76801; 76817; 80053; 81001; 84702; 85025; 86900; 86901; 99284